=== PATIENT | female | born 1990 | race Caucasian/White ===

== ENCOUNTER 2016-11-03 03:07 | Emergency (ER) | payer BC ==
--- NOTE | 2016-11-03 04:41 | ED.PDOC ---
History of Present Illness - General Chief Complaint: [employer]IV[employer]ENDANT Problem Stated Complaint: vaginal burning and itching Time Seen by Provider: 11/03/16 03:30 Source: patient Exam Limitations: no limitations - History of Present Illness Initial Comments: the patient is a 26-year-old presenting with nightly symptoms of vulvar and vaginal burning and itchingfor at least the last 3-4 weeks. She is approximately 8 weeks . She has not noted any external lesions. Mild vaginal discharge. No bleeding. he already took to the treatment for yeast infection. Timing/Duration: constant Severity: moderate Improving Factors: nothing Worsening Factors: nothing Associated Symptoms: denies symptoms Allergies/Adverse Reactions: Allergies Penicillins Allergy (Mild, Verified 11/03/16 03:23) Home Medications: Ambulatory Orders Metronidazole 500 mg PO BID #14 tab 11/03/16 Vit W/ Ferrous Fumara [] 1 tab PO DAILY 11/03/16 Progesterone Micronized [Progesterone] 100 mg PO BEDTIME 11/03/16 Review of Systems - Review of Systems Constitutional: States: no symptoms reported EENTM: States: no symptoms reported Respiratory: States: no symptoms reported Cardiology: States: no symptoms reported Gastrointestinal/Abdominal: States: no symptoms reported Genitourinary: States: see HPI Musculoskeletal: States: no symptoms reported Skin: States: no symptoms reported Neurological: States: no symptoms reported Endocrine: States: no symptoms reported Hematologic/Lymphatic: States: no symptoms reported All other Systems: No Change from Baseline Past Medical History (General) - Patient Medical History Hx Seizures: No Hx Stroke: No Hx Dementia: No Hx Asthma: No Hx of COPD: No Hx Cardiac Disorders: No Hx Congestive Heart Failure: No Hx Pacemaker: No Hx Hypertension: No Hx Thyroid Disease: No Hx Diabetes: No Hx Gastroesophageal Reflux: No Hx Renal Disease: No Hx Cancer: No Hx of HIV: No Hx Hepatitis C: No Hx MRSA: No Surgical History: appendectomy, tonsillectomy - Vaccination History Hx Tetanus, Diphtheria Vaccination: No Hx Influenza Vaccination: Yes Hx Pneumococcal Vaccination: No Immunizations Up to Date: Yes - Social History Hx Tobacco Use: No Hx Alcohol Use: No Hx Substance Use: No Hx Substance Use Treatment: No - Activities of Daily Living Hospice Agency (if applicable):: None - Female History Patient is a Female of Child Bearing Age (10 -59 yrs old): Yes Hx Last Menstrual Period: 09/13/16 Patient : No Family Medical History - Family History Father Family History: No Known Living Status: Cause of : Overdose Mother Family History: No Known Living Status: Still Living Physical Exam - Physical Exam General Appearance: Alert, Anxious, No apparent distress Eye Exam: bilateral normal Ears, Nose, Throat: hearing grossly normal Neck: full range of motion Respiratory: no respiratory distress, no accessory muscle use Cardiovascular/Chest: normal peripheral pulses, no edema Peripheral Pulses: dorsalis pedis,right: 2+, dorsalis pedis,left: 2+ Rectal Exam: other - external vulvar region shows mild erythema diffusely. No discrete lesions. Vaginal exam shows normal wall. Minimal discharge. No discrete lesions there either. Back Exam: normal inspection, no CVA tenderness, no vertebral tenderness Extremity: normal range of motion, non-tender, normal inspection, no pedal edema , normal capillary refill Neurologic: alert, normal mood/affect, oriented x 3 Skin Exam: normal color Comments: Vital Signs - 24 hr 11/03/16 11/03/16 11/03/16 03:22 03:24 04:07 Temperature 97.6 F Pulse Rate [ 88 88 92 H left radial] Respiratory 18 18 18 Rate Blood Pressure 109/69 101/64 [Right Arm] O2 Sat by Pulse 99 97 Oximetry Progress - Progress Progress: 11/03/16 04:43 The patient is a 26-year-old at 8 weeks presenting with several weeks of vulvar and vaginal pain and itching. The wet prep seemed to show a few clue cells and the patient will be treated for bacterial vaginosis. She will also receive 1 dose of Diflucan in case she has an incompletely treated yeast infection. Gonorrhea and chlamydia tests are sent out. At this point these seem less likely as the cause. The patient is not going to be treated empirically for those. It is entirely possible that a change in her shaving soap may be causing irritation. She needs to switch back to a soap that she has used before. If above measures fail to provide relief, then testing for pinworms may be warranted. ER warnings were given. She should follow-up with her primary care doctor later this week. - Results/Orders Results/Orders: Laboratory Tests 11/03/16 03:15 Urine Color Yellow Urine Appearance Clear Urine pH 6.5 Ur Specific [place] 1.020 Urine Protein Negative Urine Glucose (UA) Negative Urine Ketones Negative Urine Blood Moderate H Urine Nitrite Negative Urine Bilirubin Negative Urine Urobilinogen 0.2 Ur Leukocyte Esterase Negative Urine RBC 1-3 Urine WBC 0-1 Ur Epithelial Cells 0-1 Amorphous Sediment Trace Urine Bacteria Rare wet prep is positive for a few clue cells, otherwise negative. - EKG/XRAY/CT CT Ordered: No CT Interpretation Call Back: No Departure - Departure Clinical Impression: Vulvovaginal itching Disposition: Discharge to Home or Self Care Condition: Fair Departure Forms: ED Discharge - Pt. Copy, Patient Portal Self Enrollment Diet: regular diet Activity: increase activity as tolerated Prescriptions: Metronidazole 500 mg PO BID #14 tab Home Medications: Ambulatory Orders Metronidazole 500 mg PO BID #14 tab 11/03/16 Vit W/ Ferrous Fumara [] 1 tab PO DAILY 11/03/16 Progesterone Micronized [Progesterone] 100 mg PO BEDTIME 11/03/16 Additional Instructions: The patient is a 26-year-old at 8 weeks presenting with several weeks of vulvar and vaginal pain and itching. The wet prep seemed to show a few clue cells and the patient will be treated for bacterial vaginosis. She will also receive 1 dose of Diflucan in case she has an incompletely treated yeast infection. Gonorrhea and chlamydia tests are sent out. At this point these seem less likely as the cause. The patient is not going to be treated empirically for those. It is entirely possible that a change in her shaving soap may be causing irritation. She needs to switch back to a soap that she has used before. If above measures fail to provide relief, then testing for pinworms may be warranted. ER warnings were given. She should follow-up with her primary care doctor later this week.
[2016-11-03] MEDS ORDERED: FLUCONAZOLE 100 MG TAB PO ONE (04:48)
[2016-11-03 04:59] VITALS: BP 104/68; TEMP 98.2; O2SAT 99
== END 2016-11-03 04:59 | disposition home or self-care (01) ==
LOC: ER 03:07
DX: O26.891 Other specified pregnancy related conditions, first trimester (principal); L29.2 Pruritus vulvae; Z3A.08 8 weeks gestation of pregnancy; Z88.0 Allergy status to penicillin